=== PATIENT | female | born 1955 | race Caucasian/White ===

== ENCOUNTER → 2019-08-10 | Outpatient (CLI) | payer MEDICARE ==
--- NOTE | 2019-08-10 16:04 | Diagnostic Imaging Report ---
Exam: Bone mineral density study. History: Osteopenia. Comparison: None Discussion: Evaluation of the left hip, and lumbar spine was performed utilizing DEXA Hologic bone densitometer. The study is technically adequate. Left hip total bone mineral density: 0.712gm/cm2, T-score is -1.9, Z-score is -0.7. Left hip femoral neck bone mineral density: 0.563gm/cm2, T-score is -2.6, Z-score is -1.1. Lumbar spine total bone mineral density:0.968gm/cm2, T-score is-0.7, Z-score is 1.0. Impression: 1. Osteoporosis of the left hip, fracture risk is I 2. Normal bone mineral density of the lumbar spine, fracture risk is not increased. Least significant change (LSC) for bone mineral density as provided by center medical director is 0.023 g/cm2 for lumbar spine and 0.027 g/cm2 for total hip. 10 -year fracture risk per WHO Fracture Risk Assessment Tool (FRAX) for: Not reported because some T-scores at or below -2.5 The patient's fracture risk is compared to an age-matched control. Medical evaluation for secondary causes of low bone bone mineral density may be appropriate. Correlate clinically for the necessity and timing of the next bone mineral density study. Signed by: Dr. Larry Ramirez M.D. on 08/10/2019 4:01 PM
--- NOTE | 2019-08-14 09:41 | Diagnostic Imaging Report ---
#[id number] - MGSCRBIL #BILATERAL FIRST EVER DIGITAL SCREENING MAMMOGRAM WITH CAD: 08/10/2019 CLINICAL: Routine screening. No prior exams were available for comparison. The tissue of both breasts is predominantly fatty. Current study was also evaluated with a Computer Aided Detection (CAD) system. Benign appearing calcifications are noted bilaterally. No significant masses, calcifications, or other findings are seen in either breast. IMPRESSION: BENIGN There is no mammographic evidence of malignancy. A 1 year screening mammogram is recommended. The patient will be notified by letter of the results. MARTY MENDEZ M.D. ct/penrad:08/13/2019 09:02:55 [employer]: Aviva JAMESON(R)(M), [facility] letter sent: Normal Exam Mammogram BI-RADS: 2 Benign
== END ==
LOC: MAMMO 12:59
PROVIDERS: ATTEND Family Medicine
DX: Z12.31 Encounter for screening mammogram for malignant neoplasm of breast (principal); Z13.820 Encounter for screening for osteoporosis
CPT/HCPCS: 77067; 77080

== ENCOUNTER → 2020-09-27 | Outpatient (CLI) | payer MEDICARE | LOC: MAMMO 13:13 | PROVIDERS: ATTEND Family Medicine | DX: Z12.31 Encounter for screening mammogram for malignant neoplasm of breast (principal) | CPT/HCPCS: 77067 ==

== ENCOUNTER → 2022-02-05 | Outpatient (CLI) | payer MEDICARE | LOC: MAMMO 13:58 | PROVIDERS: ATTEND Family Medicine | DX: Z12.31 Encounter for screening mammogram for malignant neoplasm of breast (principal); M81.8 Other osteoporosis without current pathological fracture | CPT/HCPCS: 77067; 77080 ==

== ENCOUNTER → 2023-01-03 | Day surgery (SDC) | payer MEDICARE ==
[2023-01-01 11:27] LABS: BASOPHILS % 0.6 % (0.0-1.0); EOSINOPHILS # (AUTO) 0.1 (0.0-0.4); EOSINOPHILS % 2.5 % (0.0-6.0); HEMATOCRIT 38.8 % (34.2-44.1); HEMOGLOBIN 11.6 g/dL (12.0-16.0); LYMPHOCYTES # (AUTO) 1.4 (1.0-3.2); LYMPHOCYTES % 27.8 % (18.0-39.1); MEAN CORPUSCULAR HEMOGLOBIN 26.8 pg (28-32); MEAN CORPUSCULAR HGB CONC 29.9 g/dL (31-35); MEAN CORPUSCULAR VOLUME 89.6 fL (81-99); MONOCYTES # (AUTO) 0.5 (0.2-0.8); MONOCYTES % 9.9 % (4.4-11.3); PLATELET COUNT 292 x10e3/uL (140-360); RED BLOOD COUNT 4.33 x10e6/uL (3.6-5.1); RED CELL DISTRIBUTION WIDTH 12.6 % (11.7-14.4)
[2023-01-01 11:37] LABS: INR 1.02; PROTHROMBIN TIME 13.6 seconds (11.9-14.5)
[2023-01-01 11:44] LABS: ALBUMIN 3.3 g/dL (3.5-5.0); ALBUMIN/GLOBULIN RATIO 0.7 (0.8-2.0); CALCIUM 9.3 mg/dL (8.4-10.2); CHOL/HDL RATIO 3.7 (3.0-3.6); CREATININE, SERUM 0.69 mg/dL (0.57-1.11)
[~2023-01-03] VITALS: Ht 165.1 cm; Wt 82.1 kg
[2023-01-03] VITALS (11 sets, daily range): BP systolic 116–158; BP diastolic 69–85
[~2023-01-03] MED LIST: AMBIEN10 MG PO; ASPIRIN81 MG PO; CARVEDILOL3.125 MG PO; CLOPIDOGREL75 MG PO; FENTANYL CITRATE/PF 100MCG/2 ML INJ ONE; HEPARIN SOD (PORCINE) 1000 UNIT/ML 30ML ONE; HEPARIN SOD/SOD CHLORIDE 2,000 ML ONE; IOPAMIDOL 370 MG/ML 100 ML INFUS..BTL INJ ONE; LIDOCAINE HCL 2% LOCAL 20 ML VIAL ONE; LIPITOR20 MG PO; MIDAZOLAM HCL 2 MG/2 ML VIAL ONE; NITROGLYCERIN/D5W 200 MCG/ML 250 ML ONE; SODIUM CHLORIDE 0.9% 1000ML 1,000 ML ONE; VERAPAMIL HCL 2.5 MG/ML 2 ML VIAL ONE
== END | disposition home or self-care (01) ==
LOC: CATH LAB 06:33
PROVIDERS: ATTEND Internal Medicine Cardiovascular Disease
DX: I25.10 Atherosclerotic heart disease of native coronary artery without angina pectoris (principal); R94.39 Abnormal result of other cardiovascular function study; I10 Essential (primary) hypertension; I25.2 Old myocardial infarction; E78.5 Hyperlipidemia, unspecified; Z71.3 Dietary counseling and surveillance; Z71.82 Exercise counseling; Z88.0 Allergy status to penicillin; Z01.812 Encounter for preprocedural laboratory examination; Z79.02 Long term (current) use of antithrombotics/antiplatelets; Z79.82 Long term (current) use of aspirin; Z79.899 Other long term (current) drug therapy; Z68.31 Body mass index [BMI] 31.0-31.9, adult; Z86.74 Personal history of sudden cardiac arrest; Z87.891 Personal history of nicotine dependence
CPT/HCPCS: 36415; 80053; 80061; 85025; 85610; 93458; C1766; C1887; J1644; J2001; J2250; J3010; J7030; Q9967; 99152; 99153

== ENCOUNTER 2023-05-16 10:38 | Observation (INO) | payer MEDICARE ==
[~2023-05-16] VITALS: Ht 165.1 cm; Wt 79.4 kg
[~2023-05-16 10:38] MED LIST changes: -FENTANYL CITRATE/PF 100MCG/2 ML INJ ONE; -HEPARIN SOD (PORCINE) 1000 UNIT/ML 30ML ONE; -HEPARIN SOD/SOD CHLORIDE 2,000 ML ONE; -IOPAMIDOL 370 MG/ML 100 ML INFUS..BTL INJ ONE; -LIDOCAINE HCL 2% LOCAL 20 ML VIAL ONE; -MIDAZOLAM HCL 2 MG/2 ML VIAL ONE; -NITROGLYCERIN/D5W 200 MCG/ML 250 ML ONE; -SODIUM CHLORIDE 0.9% 1000ML 1,000 ML ONE; -VERAPAMIL HCL 2.5 MG/ML 2 ML VIAL ONE
[2023-05-16 12:01] LABS: BASOPHILS % 0.7 % (0.0-1.0); EOSINOPHILS # (AUTO) 0.1 (0.0-0.4); EOSINOPHILS % 1.9 % (0.0-6.0); HEMATOCRIT 35.1 % (34.2-44.1); HEMOGLOBIN 11.3 g/dL (12.0-16.0); LYMPHOCYTES # (AUTO) 1.1 (1.0-3.2); LYMPHOCYTES % 19.8 % (18.0-39.1); MEAN CORPUSCULAR HEMOGLOBIN 26.4 pg (28-32); MEAN CORPUSCULAR HGB CONC 32.2 g/dL (31-35); MONOCYTES # (AUTO) 0.5 (0.2-0.8); MONOCYTES % 8.4 % (4.4-11.3); NEUTROPHILS # (AUTO) 3.7 (2.1-6.9); PLATELET COUNT 320 x10e3/uL (140-360); RED BLOOD COUNT 4.28 x10e6/uL (3.6-5.1); RED CELL DISTRIBUTION WIDTH 13.4 % (11.7-14.4)
[2023-05-16 12:15] LABS: ALBUMIN 3.2 g/dL (3.5-5.0); ALBUMIN/GLOBULIN RATIO 0.6 (0.8-2.0); ANION GAP 15.7 mmol/L (8-16); CALCIUM 9.6 mg/dL (8.4-10.2); CREATININE, SERUM 0.76 mg/dL (0.57-1.11); MAGNESIUM 1.7 MG/DL (1.3-2.1); POTASSIUM 3.7 mmol/L (3.5-5.1)
[2023-05-16 12:21] LABS: INR 1.09; PROTHROMBIN TIME 14.6 seconds (11.9-14.5)
[2023-05-16 12:22] LABS: PARTIAL THROMBOPLASTIN TIME 28.7 seconds (23.8-35.5)
[2023-05-16] MEDS ORDERED: SODIUM CHLORIDE 0.9% 500ML 500 ML IV ONE (13:00)
[2023-05-16] MEDS ORDERED: IOPAMIDOL 370 MG/ML 100 ML INFUS..BTL INJ ONE (13:02)
[2023-05-16] MEDS ORDERED: Morphine 2mg Syringe 2 MG/ML SYR IV PRN (13:45)
[2023-05-16] MEDS ORDERED: ONDANSETRON HCL INJ 2MG/ML 2ML 2 MG/ML VIAL IV PRN (13:45)
[2023-05-16] MEDS ORDERED: NITROGLYCERIN 0.4 MG SUBL SL PRN (13:45)
[2023-05-16] MEDS: FAMOTIDINE 20 MG/2 ML VIAL IV SCH ×2 (14:30→22:05)
[2023-05-16 14:47] VITALS: PULSE 75; RESP 20; O2SAT 98
[2023-05-16] MEDS ORDERED: ZOLPIDEM TARTRATE 10 MG TAB PO PRN (16:00)
[2023-05-16] MEDS ORDERED: DEXAMETHASONE SOD PHOS 10 MG/1 ML VIAL IV ONE (16:45)
[2023-05-16] MEDS ORDERED: ALBUTEROL/IPRATROPIUM 3 ML NEB NEB ONE (16:45)
[2023-05-16] MEDS: CARVEDILOL 3.125 MG TAB PO SCH (18:06)
[2023-05-16] MEDS ORDERED: IBUPROFEN 600 MG TAB PO STA (19:31)
[2023-05-16 19:37] LABS: CREATINE KINASE 70 IU/L (29-168)
[2023-05-16 19:43] VITALS: PULSE 72; RESP 18; O2SAT 98
[2023-05-16 20:00] VITALS: BP 130/77; PULSE 71; RESP 20; TEMP 98; O2SAT 95
[2023-05-16 20:28] VITALS: PULSE 70; RESP 18; O2SAT 98
[2023-05-16] MEDS ORDERED: ATORVASTATIN 40 MG TAB PO SCH (21:00)
[2023-05-16 21:11] VITALS: BP 130/77; PULSE 71; RESP 20; TEMP 98
[2023-05-16 21:54] VITALS: BP 130/77; PULSE 71; RESP 20; TEMP 98; O2SAT 98
[2023-05-17] VITALS: BP 109/69; PULSE 70; RESP 20; TEMP 97.9; O2SAT 95
[2023-05-17 04:00] VITALS: BP 132/79; PULSE 73; RESP 20; TEMP 97.9; O2SAT 93
[2023-05-17 06:43] LABS: BASOPHILS % 0.8 % (0.0-1.0); EOSINOPHILS # (AUTO) 0.2 (0.0-0.4); EOSINOPHILS % 3.4 % (0.0-6.0); HEMATOCRIT 34.7 % (34.2-44.1); LYMPHOCYTES # (AUTO) 1.3 (1.0-3.2); MEAN CORPUSCULAR HEMOGLOBIN 25.8 pg (28-32); MEAN CORPUSCULAR HGB CONC 31.7 g/dL (31-35); MEAN CORPUSCULAR VOLUME 81.5 fL (81-99); MONOCYTES # (AUTO) 0.7 (0.2-0.8); MONOCYTES % 14.5 % (4.4-11.3); NEUTROPHILS # (AUTO) 2.7 (2.1-6.9); NEUTROPHILS % 54.9 % (38.7-80.0); PLATELET COUNT 288 x10e3/uL (140-360); RED BLOOD COUNT 4.26 x10e6/uL (3.6-5.1); RED CELL DISTRIBUTION WIDTH 13.3 % (11.7-14.4)
[2023-05-17 07:05] LABS: ALBUMIN/GLOBULIN RATIO 0.6 (0.8-2.0); ANION GAP 15.9 mmol/L (8-16); CALCIUM 9.4 mg/dL (8.4-10.2); CHOL/HDL RATIO 3.8 (3.0-3.6); CREATININE, SERUM 0.68 mg/dL (0.57-1.11); POTASSIUM 3.9 mmol/L (3.5-5.1)
[2023-05-17] MEDS: FAMOTIDINE 20 MG/2 ML VIAL IV SCH (08:22)
[2023-05-17] MEDS: CARVEDILOL 3.125 MG TAB PO SCH (08:23)
[2023-05-17 08:37] VITALS: BP 130/84; PULSE 80; RESP 18; TEMP 98.5; O2SAT 95
[2023-05-17 08:41] VITALS: BP 130/84; PULSE 80; RESP 18; TEMP 98.5; O2SAT 95
[2023-05-17] MEDS ORDERED: ONDANSETRON HCL 4 MG ORAL DISINTEGRATING TAB PO PRN (10:30)
[2023-05-17] MEDS ORDERED: FAMOTIDINE 20 MG TAB PO SCH (16:30)
== END 2023-05-17 10:25 | disposition home or self-care (01) ==
LOC: ER 11:00 → ERHOLD 13:52 → MED/SURG 20:20
PROVIDERS: ADMIT Internal Medicine; ATTEND Internal Medicine
DX: R07.89 Other chest pain (principal); D49.1 Neoplasm of unspecified behavior of respiratory system; J43.9 Emphysema, unspecified; I25.10 Atherosclerotic heart disease of native coronary artery without angina pectoris; R06.00 Dyspnea, unspecified; I25.2 Old myocardial infarction; E78.5 Hyperlipidemia, unspecified; Z87.891 Personal history of nicotine dependence
CPT/HCPCS: 36415 ×2; 71045; 71260; 80053 ×2; 80061; 82550 ×2; 83735; 83880; 84484 ×2; 85025 ×2; 85610; 85730; 93005; 94799; 99284; G0378 ×2; J1100; Q9967; U0002

== ENCOUNTER → 2024-09-02 | Outpatient (REF) | payer MEDICARE ==
[~2024-09-02] MED LIST changes: +TRELEGY ELLIPT1 EACH INH
== END ==
LOC: MAMMO 12:43
PROVIDERS: ATTEND Family Medicine
DX: Z12.31 Encounter for screening mammogram for malignant neoplasm of breast (principal); M81.0 Age-related osteoporosis without current pathological fracture
CPT/HCPCS: 77067; 77080

== ENCOUNTER 2025-01-11 11:37 | Emergency (ER) | payer MEDICARE ==
[~2025-01-11] VITALS: Ht 165.1 cm; Wt 70.3 kg
[2025-01-11 11:48] VITALS: PULSE 90; RESP 16; TEMP 98.7
[2025-01-11 12:41] VITALS: BP 119/70; PULSE 90; RESP 16; TEMP 98; O2SAT 100
== END 2025-01-11 12:42 | disposition home or self-care (01) ==
LOC: ER 12:05
DX: R20.0 Anesthesia of skin (principal); G62.9 Polyneuropathy, unspecified; W18.39XA Other fall on same level, initial encounter; Y93.01 Activity, walking, marching and hiking; Y92.89 Other specified places as the place of occurrence of the external cause; I10 Essential (primary) hypertension; E78.5 Hyperlipidemia, unspecified; I25.10 Atherosclerotic heart disease of native coronary artery without angina pectoris; I25.2 Old myocardial infarction; Z95.5 Presence of coronary angioplasty implant and graft
CPT/HCPCS: 99283